=== PATIENT | male | born 1975 | race Caucasian/White ===

== ENCOUNTER 2024-07-01 11:21 | Inpatient (IN) | payer OTHER ==
--- NOTE | 2024-07-01 11:48 | ED ---
General Adult HPI - General Source: patient, RN notes reviewed, old records reviewed Mode of arrival: ambulatory Limitations: no limitations <Burton Newman - Last Filed: 07/01/24 15:08> <Marcus Centeno - Last Filed: 07/01/24 18:35> - General Chief complaint: Psychiatric Symptoms Stated complaint: Mental Health Time Seen by Provider: 07/01/24 11:25 - History of Present Illness Initial comments: This is a 49-year-old male who presents to the emergency department stating that he has been an alcoholic for the last 20 years. Patient states her last month him and his have been and this made him very depressed. Patient stated today he felt like killing himself so he called his brother and told him he was going to kill himself and potentially run out into traffic. Patient states he did drink heavy last night but he has not yet drank today. Patient denies any physical complaints today other than a bruise on his arm and hip secondary to falling but he has full range of motion of his extremities. Patient denies any recent fever chills or cough. Patient has any difficulty breathing or shortness of breath. Patient has any abdominal pain patient has nausea vomiting diarrhea (Burton Newman) - Related Data Home Medications Medication Instructions Recorded Confirmed traZODone HCL [Desyrel] 100 mg PO HS PRN 07/01/24 07/01/24 Allergies Allergy/AdvReac Type Severity Reaction Status Date / Time No Known Allergies Allergy Verified 07/01/24 12:04 Review of Systems ROS Other: All systems not noted in ROS Statement are negative. <Burton Newman - Last Filed: 07/01/24 15:08> ROS Other: All systems not noted in ROS Statement are negative. <Marcus Centeno - Last Filed: 07/01/24 18:35> ROS Statement: Those systems with pertinent positive or pertinent negative responses have been documented in the HPI. Past Medical History Past Medical History: No Reported History Past Surgical History: No Surgical Hx Reported Past Psychological History: Anxiety Smoking Status: Former smoker Past Alcohol Use History: Abuse, Daily, Heavy Past Drug Use History: None Reported <Burton Newman - Last Filed: 07/01/24 15:08> General Exam Limitations: no limitations <Burton Newman - Last Filed: 07/01/24 15:08> - General Exam Comments Initial Comments: GENERAL: Patient is well-developed and well-nourished. Patient is nontoxic and well- hydrated and is in mild distress. ENT: Neck is soft and supple. No significant lymphadenopathy is noted. Oropharynx is clear. Moist mucous membranes. Neck has full range of motion without eliciting any pain. EYES: The sclera were anicteric and conjunctiva were pink and moist. Extraocular movements were intact and pupils were equal round and reactive to light. Eyelids were unremarkable. PULMONARY: Unlabored respirations. Good breath sounds bilaterally. No audible rales rhonchi or wheezing was noted. CARDIOVASCULAR: There is a regular rate and rhythm without any murmurs gallops or rubs. ABDOMEN: Soft and nontender with normal bowel sounds. SKIN: Patient has a bruise on the upper inner aspect of his right arm and on the right hip patient has full range of motion of his right arm and right hip NEUROLOGIC: Patient is alert and oriented x3. Cranial nerves II through XII are grossly intact. Motor and sensory are also intact. Normal speech, volume and content. Symmetrical smile. MUSCULOSKELETAL: Normal extremities with adequate strength and full range of motion. No lower extremity swelling or edema. No calf tenderness. LYMPHATICS: No significant lymphadenopathy is noted PSYCHIATRIC: Patient is stating he is suicidal (Burton Newman) Course Vital Signs 07/01/24 07/01/24 11:30 16:07 Temperature 98.3 F 97.8 F Pulse Rate 108 H 79 Respiratory 18 17 Rate Blood Pressure 134/88 137/94 O2 Sat by Pulse 96 97 Oximetry Medical Decision Making - Lab Data Result diagrams: 07/01/24 12:16 07/01/24 12:16 <Burton Newman - Last Filed: 07/01/24 15:08> - Lab Data Result diagrams: 07/01/24 12:16 07/01/24 12:16 <Marcus Centeno - Last Filed: 07/01/24 18:35> - Medical Decision Making Was pt. sent in by a medical professional or institution (, PA, BOAT PILOT, urgent care, hospital, or [facility]...) When possible be specific @ -No Did you speak to anyone other than the patient for history (EMS, parent, family, police, friend...)? What history was obtained from this source @ -No Did you review nursing and triage notes (agree or disagree)? Why? @ -I reviewed and agree with nursing and triage notes Were old charts reviewed (outside hosp., previous admission, EMS record, old EKG, old radiological studies, urgent care reports/EKG's, [facility] records)? Report findings @ -No old charts were reviewed Differential Diagnosis? @ -Alcohol intoxication, alcohol withdrawal, suicidal, depression, situational depression, this is not an all-inclusive list EKG interpreted by me (3pts min.). @ -As above X-rays interpreted by me (1pt min.). @ -None done CT interpreted by me (1pt min.). @ -None done U/S interpreted by me (1pt. min.). @ -None done What testing was considered but not performed or refused? (CT, X-rays, U/S, labs)? Why? @ -None What meds were considered but not given or refused? Why? @ -None Did you discuss the management of the patient with other professionals (professionals i.e. , PA, BOAT PILOT, lab, RT, psych nurse, social work instructor, data migration lead, teacher, tactical response group officer, manager rn case)? Give summary @ -No Was smoking cessation discussed for >3mins.? @ -No Was critical care preformed (if so, how long)? @ -No Were there social determinants of health that impacted care today? How? (Homelessness, low income, unemployed, alcoholism, drug addiction, transportation, low edu. Level, literacy, decrease access to med. care, snf, rehab)? @ -No Was there de-escalation of care discussed even if they declined (Discuss DNR or withdrawal of care, Hospice)? DNR status @ -No What co-morbidities impacted this encounter? (DM, HTN, Smoking, COPD, CAD, Cancer, CVA, ARF, Chemo, Hep., AIDS, mental health diagnosis, sleep apnea, morbid obesity)? @ -None Was patient admitted / discharged? Hospital course, mention meds given and route, prescriptions, significant lab abnormalities, going to OR and other pertinent info. @ -Patient is intoxicated and will be medically clear at 430 at which point in time Dr. Centeno will take over the care of this patient and EPS will come evaluate (Burton Newman) Patient care signed out to me by previous shift physician, Dr. Newman. Briefly, patient is a 49-year-old male who presents to the emergency department with suicidal ideation. Patient pending EPS evaluation. At 6:35 PM was notified by EPS that patient will be admitted to inpatient psych. (Marcus Centeno) - Lab Data Lab Results 07/01/24 07/01/24 07/01/24 Range/Units 12:16 12:16 12:53 WBC 6.7 (3.8-10.6) k/uL RBC 4.98 (4.30-5.90) m/uL Hgb 16.1 (13.0-17.5) gm/dL Hct 49.1 (39.0-53.0) % MCV 98.4 (80.0-100.0) fL MCH 32.3 (25.0-35.0) pg MCHC 32.8 (31.0-37.0) g/dL RDW 12.6 (11.5-15.5) % Plt Count 286 (150-450) k/uL MPV 6.8 Neutrophils % 64 % Lymphocytes % 27 % Monocytes % 5 % Eosinophils % 1 % Basophils % 1 % Neutrophils # 4.3 (1.3-7.7) k/uL Lymphocytes # 1.8 (1.0-4.8) k/uL Monocytes # 0.4 (0-1.0) k/uL Eosinophils # 0.1 (0-0.7) k/uL Basophils # 0.1 (0-0.2) k/uL Sodium 140 (137-145) mmol/L Potassium 3.9 (3.5-5.1) mmol/L Chloride 109 H (98-107) mmol/L Carbon Dioxide 21 L (22-30) mmol/L Anion Gap 10 mmol/L BUN 10 (9-20) mg/dL Creatinine 0.78 (0.66-1.25) mg/dL Est GFR (CKD-EPI)AfAm >90 (>60 ml/min/1.73 sqM) Est GFR (CKD-EPI)NonAf >90 (>60 ml/min/1.73 sqM) Glucose 106 H (74-99) mg/dL Calcium 8.8 (8.4-10.2) mg/dL Magnesium 2.1 (1.6-2.3) mg/dL Total Bilirubin 0.6 (0.2-1.3) mg/dL AST 30 (17-59) U/L ALT 47 (4-49) U/L Alkaline Phosphatase 66 (38-126) U/L Total Protein 7.4 (6.3-8.2) g/dL Albumin 4.8 (3.5-5.0) g/dL Urine Opiates Screen Not Detected (NotDetected) Ur Oxycodone Screen Not Detected (NotDetected) Urine Methadone Screen Not Detected (NotDetected) Ur Barbiturates Screen Not Detected (NotDetected) U Tricyclic Antidepress Not Detected (NotDetected) Ur Phencyclidine Scrn Not Detected (NotDetected) Ur Amphetamines Screen Not Detected (NotDetected) U Methamphetamines Scrn Not Detected (NotDetected) U Benzodiazepines Scrn Not Detected (NotDetected) Urine Cocaine Screen Not Detected (NotDetected) U Marijuana (THC) Screen Not Detected (NotDetected) Disposition <Burton Nemwan - Last Filed: 07/01/24 15:08> Decision Time: 18:35 <Marcus Centeno - Last Filed: 07/01/24 18:35> Clinical Impression: Suicidal ideation Disposition: ADMITTED IP TO THIS [facility] Condition: Fair Referrals: Baljit Brown MD [Primary Care Provider] - 1-2 days
[2024-07-01] MEDS: SODIUM CHLORIDE 0.9% 1,000 ML IV ONE (12:17)
[2024-07-01] MEDS: SODIUM CHLORIDE 0.9% 500 ML 500 ML IV ONE (12:17)
[2024-07-01 12:25] LABS: Basophils # (A) 0.1 k/uL (0-0.2); Basophils % (A) 1 %; Eosinophils # (A) 0.1 k/uL (0-0.7); Eosinophils % (A) 1 %; HCT 49.1 % (39.0-53.0); HGB 16.1 gm/dL (13.0-17.5); Lymphocytes # (A) 1.8 k/uL (1.0-4.8); Lymphocytes % (A) 27 %; MCH 32.3 pg (25.0-35.0); MCHC 32.8 g/dL (31.0-37.0); MCV 98.4 fL (80.0-100.0); Mean Platelet Volume 6.8; Monocytes # (A) 0.4 k/uL (0-1.0); Monocytes % (A) 5 %; Neutrophils # (A) 4.3 k/uL (1.3-7.7); Neutrophils % (A) 64 %; Platelet Count 286 k/uL (150-450); RBC 4.98 m/uL (4.30-5.90); RDW 12.6 % (11.5-15.5); WBC 6.7 k/uL (3.8-10.6)
[2024-07-01 12:34] LABS: ALT 47 U/L (4-49); AST 30 U/L (17-59); African American GFR (CKD) >90 (>60 ml/min/1.73 sqM); Albumin 4.8 g/dL (3.5-5.0); Alkaline Phosphatase 66 U/L (38-126); Anion Gap 10 mmol/L; Blood Urea Nitrogen 10 mg/dL (9-20); Calcium 8.8 mg/dL (8.4-10.2); Carbon Dioxide 21 mmol/L (22-30); Chloride 109 mmol/L (98-107); Glucose 106 mg/dL (74-99); Magnesium 2.1 mg/dL (1.6-2.3); Non-African American GFR(CKD) >90 (>60 ml/min/1.73 sqM); Potassium 3.9 mmol/L (3.5-5.1); Sodium 140 mmol/L (137-145); Total Bilirubin 0.6 mg/dL (0.2-1.3); Total Protein 7.4 g/dL (6.3-8.2)
[2024-07-01 13:17] LABS: Amphetamine Screen,Urine Not Detected (NotDetected); Barbiturate Screen,Urine Not Detected (NotDetected); Benzodiazepines Screen,Urine Not Detected (NotDetected); Cocaine Screen,Urine Not Detected (NotDetected); Methadone Screen, Urine Not Detected (NotDetected); Opiate Screen,Urine Not Detected (NotDetected); Oxycodone Screen, Urine Not Detected (NotDetected); Phencyclidine Screen,Urine Not Detected (NotDetected); Tricyclic Antidepressant,Urine Not Detected (NotDetected); Urn Cannabinoid Scrn Not Detected (NotDetected)
[2024-07-01] MEDS: diazePAM 2 MG TAB PO STA (18:47)
[2024-07-02] MEDS ORDERED: IBUPROFEN 600 MG TAB PO PRN (01:45)
[2024-07-02] MEDS ORDERED: ACETAMINOPHEN TAB 325 MG TAB PO PRN (01:45)
[2024-07-02] MEDS ORDERED: LORazepam 1 MG TAB PO PRN ×4 (01:51)
[2024-07-02] MEDS ORDERED: HALOPERIDOL LACTATE 5 MG/ML 1 ML VIAL IM PRN (01:55)
[2024-07-02] MEDS ORDERED: haloperidoL 5 MG TAB PO PRN (01:55)
[2024-07-02] MEDS ORDERED: LORazepam 2 MG/ML INJ IM PRN (01:59)
[2024-07-02 03:23] VITALS: RESP 18
[2024-07-02] MEDS: traZODone HCL 50 MG TAB PO SCH (03:27)
[2024-07-02] MEDS: MULTIVITAMINS, THERA 1 EACH TAB PO SCH (09:28)
[2024-07-02] MEDS: FOLIC ACID 1 MG TAB PO SCH (09:28)
[2024-07-02] MEDS: SERTRALINE 50 MG TAB PO SCH (12:31)
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
[2024-07-02] MEDS: NICOTINE GUM (POLACRILEX) 2 MG GUM BUCCAL PRN (13:39)
[2024-07-02] MEDS: hydrOXYzine pamoate 25 MG CAP PO PRN (17:23)
[2024-07-02] MEDS ORDERED: traZODone HCL 50 MG TAB PO SCH (21:00)
[2024-07-02] MEDS: traZODone HCL 100 MG TAB PO SCH (22:25)
--- NOTE | 2024-07-03 06:25 | P.MDCNMH ---
History of Present Illness H&P Date: 07/02/24 This is a very pleasant 49-year-old male who has been having increased depression with suicidal ideation and thoughts of wanting to harm himself. Patient has recently with his significant other and also lost his job and had been having increased depression with feelings of hopelessness and worthless and had been recently drinking more frequently and daily and reports to at least 1/5 of vodka a day. Patient also reports history of anxiety and depression former smoker and continues to vape and denies any other illicit drug use. Patient denies chest pain or shortness of breath and vital signs were stable. Will provide Nicorette gum and other supportive care. Patient was voluntarily admitted to [facility] for depression with suicidal ideation. Patient follows with Dr. Brown as his primary care provider outpatient. REVIEW OF SYSTEMS: CONSTITUTIONAL: No fever, no malaise, no fatigue. HEENT: No recent visual problems or hearing problems. Denied any sore throat. CARDIOVASCULAR: No chest pain, orthopnea, PND, no palpitations, no syncope. PULMONARY: No shortness of breath, no cough, no hemoptysis. GASTROINTESTINAL: No diarrhea, no nausea, no vomiting, no abdominal pain. NEUROLOGICAL: No headaches, no weakness, no numbness. HEMATOLOGICAL: Denies any bleeding or petechiae. GENITOURINARY: Denies any burning micturition, frequency, or urgency. MUSCULOSKELETAL/RHEUMATOLOGICAL: Denies any joint pain, swelling, or any muscle pain. ENDOCRINE: Denies any polyuria or polydipsia. The rest of the 14-point review of systems is negative. PHYSICAL EXAMINATION: GENERAL: The patient is alert and oriented x3, not in any acute distress. Well developed, thin built HEENT: Pupils are round and equally reacting to light. EOMI. No scleral icterus. No conjunctival pallor. Normocephalic, atraumatic. No pharyngeal erythema. No thyromegaly. CARDIOVASCULAR: S1 and S2 present. No murmurs, rubs, or gallops. PULMONARY: Chest is clear to auscultation, no wheezing or crackles. ABDOMEN: Soft, nontender, nondistended, normoactive bowel sounds. No palpable organomegaly. MUSCULOSKELETAL: No joint swelling or deformity. EXTREMITIES: No cyanosis, clubbing, or pedal edema. NEUROLOGICAL: Gross neurological examination did not reveal any focal deficits. SKIN: No rashes. Assessment: Depression with suicidal ideation History of anxiety and depression Former smoker Vaping Former alcohol abuse although recently started drinking again, reports at least 1/5 of vodka daily GI prophylaxis Full code Plan: Patient was voluntarily admitted to [facility] for further psychiatric evaluation with increased depression with suicidal ideation and thoughts of wanting to harm himself Patient was instructed to work with psychiatry regarding medications. Encouraged group therapy sessions Nicorette gum as needed Thank you kindly for this consultation. Patient has been instructed to follow- up with primary care provider on discharge The impression and plan of care has been dictated by Melody Mcnair, Nurse Practitioner as directed. Dr. Sunny MD I have performed a history and examination and MDM of this patient, discussed the same with the dictator, and agree with the dictator's assessment and plan as written ,documented as a scribe. Based on total visit time, I have performed more than 50% of the visit. Past Medical History Past Medical History: No Reported History History of Any Multi-Drug Resistant Organisms: None Reported Past Surgical History: No Surgical Hx Reported Past Anesthesia/Blood Transfusion Reactions: No Reported Reaction Past Psychological History: Anxiety, Depression Smoking Status: Former smoker, Vaper Past Alcohol Use History: Abuse, Daily, Heavy Additional Past Alcohol Use History / Comment(s): Patietnt reports drinking a fifth a day. Past Drug Use History: None Reported - Past Family History Father Family Medical History: Unable to Obtain Mother Family Medical History: Unable to Obtain Medications and Allergies Home Medications Medication Instructions Recorded Confirmed Type traZODone HCL [Desyrel] 100 mg PO HS PRN 07/01/24 07/01/24 History Allergies Allergy/AdvReac Type Severity Reaction Status Date / Time No Known Allergies Allergy Verified 07/01/24 12:04 Physical Exam Vitals: Vital Signs Temp Pulse Pulse Resp BP BP Pulse Ox 07/02/24 03:17 98.4 F 72 18 157/98 99 07/01/24 16:07 97.8 F 79 17 137/94 97 07/01/24 11:30 98.3 F 108 H 18 134/88 96 Intake and Output 07/01/24 07/02/24 07/02/24 22:59 06:59 14:59 Other: Weight 90.01 kg Cranial Nerve Examination - Cranial Nerves Cranial Nerve I- Olfactory: Intact Cranial Nerve II- Optic: Intact Cranial Nerve III- Oculomotor: Intact Cranial Nerve IV- Trochlear: Intact Cranial Nerve V- Trigeminal: Intact Cranial Nerve - Abducens: Intact Cranial Nerve VII- Facial: Intact Cranial Nerve VIII- Auditory: Intact Cranial Nerve IX- Glossopharyngeal: Intact Cranial Nerve X- Vagus: Intact Cranial Nerve XI- Accessory: Intact Cranial Nerve XII- Hypoglossal: Intact Results CBC & Chem 7: 07/01/24 12:16 07/01/24 12:16 Labs: Abnormal Lab Results - Last 24 Hours (Table) 07/01/24 Range/Units 12:16 Chloride 109 H (98-107) mmol/L Carbon Dioxide 21 L (22-30) mmol/L Glucose 106 H (74-99) mg/dL
[2024-07-03] MEDS: NALTREXONE HCL 50 MG TAB PO SCH (10:22)
--- NOTE | 2024-07-03 11:33 | P.PN ---
Progress Note - Text Progress Note Date: 07/03/24 Interval History: patient was seen today for psychiatric follow up. he claims that he feels a bit calmer today and is stating that his mood and anxiety are mildly improving today. He claims that the medications have been helping him, denying any side effects at this time. He states that once he is discharged he does not want to go to rehab and wants to go to his brother's house as he feels that he could remain sober there. Claims that he had a difficult time sleeping last night. States that his appetite is fair has been trying to go to some groups. We spoke again about decreasing the Librium which she is okay with. At this time he is denying any suicidal homicidal ideations intent or plan, denying any auditory or visual hallucinations. MENTAL STATUS EXAM: General Appearance: Patient appears to be thin, longer hair, stated age is alert, improving eye contact, attempts to cooperate, Patient appears to have improving hygiene and grooming. Behavior: Patient is seated without any agitated behavior. More cooperative today Speech: Patient's speech is fluent and nonpressured. [place], improving Mood/Affect: Patient reports their mood is improving mildly, affect is congruent and constricted. Suicidality/Homicidality: Patient denies having any homicidal ideation intent or plan. Denies any suicidal ideations intent or plan Perceptions: Patient denies any visual hallucinations and denies any auditory hallucinations Though content/process: There is no evidence of any delusional thought content and thought process is linear and goal-directed. Poverty of content Memory and concentration: AOX3, grossly intact for the purposes of this session Judgment and insight: Poor improving mildly IMPRESSIONS: Major depressive disorder, without psychotic features Anxiety disorder unspecified Alcohol use disorder Nicotine dependence PLAN: -Patient is admitted under voluntary status to [facility] for stabilization of psychiatric symptoms and safety. Patient has signed adult voluntary form and medication consent and is placed in patient's chart. -Medications : Zoloft 50 mg daily for mood/anxiety, trazodone 100 mg nightly for insomnia/mood, decrease Librium 10 mg 3 times daily with plan to taper down for alcohol withdrawal. Naltrexone 50 mg p.o. daily for alcohol cravings. Vistaril as needed for anxiety. -Ativan and Haldol PRN for agitation/aggression -thiamine, MVM for etoh use -CIWA protocol with Ativan PRN for ETOH withdrawal. -NRT -nicotine patch -SW on board for discharge planning. Encourage patient to participate in groups to work on coping skills.
--- NOTE | 2024-07-04 11:22 | P.PN ---
Progress Note - Text Progress Note Date: 07/04/24 Interval History: patient was seen today for psychiatric follow up. he claims that he feels a bit calmer today, is reporting a improvement in his mood today. He states that he would like to continue on the same dose of Zoloft at this time. Did state that he had a difficult time sleeping last night. We spoke about increasing the trazodone which she is okay with. Not reporting any other side effects. Claims that the alcohol withdrawal has been improving not reporting any symptoms or shaking at this time. States that his appetite is improving. He appears to be a bit more future oriented today, asking about potential discharge tomorrow. Has been going to some groups. We spoke again about decreasing the Librium which she is okay with. At this time he is denying any suicidal homicidal ideations intent or plan, denying any auditory or visual hallucinations. MENTAL STATUS EXAM: General Appearance: Patient appears to be thin, longer hair, stated age is alert, improving eye contact, attempts to cooperate, Patient appears to have improving hygiene and grooming. Behavior: Patient is seated without any agitated behavior. More cooperative today Speech: Patient's speech is fluent and nonpressured, improving Mood/Affect: Patient reports their mood is improving mildly, affect is congruent and improving Suicidality/Homicidality: Patient denies having any homicidal ideation intent or plan. Denies any suicidal ideations intent or plan Perceptions: Patient denies any visual hallucinations and denies any auditory hallucinations Though content/process: There is no evidence of any delusional thought content and thought process is linear and goal-directed, more future oriented today Memory and concentration: AOX3, grossly intact for the purposes of this session Judgment and insight: Improving mildly IMPRESSIONS: Major depressive disorder, without psychotic features Anxiety disorder unspecified Alcohol use disorder Nicotine dependence PLAN: -Patient is admitted under voluntary status to [facility]HU for stabilization of psychiatric symptoms and safety. Patient has signed adult voluntary form and medication consent and is placed in patient's chart. -Medications : Zoloft 50 mg daily for mood/anxiety, increase trazodone 150 mg nightly for insomnia/mood, decrease Librium 10 mg 2 times daily with plan to taper down for alcohol withdrawal, last dose tomorrow am. Naltrexone 50 mg p.o. daily for alcohol cravings. Vistaril as needed for anxiety. -Ativan and Haldol PRN for agitation/aggression -thiamine, MVM for etoh use -CIWA protocol with Ativan PRN for ETOH withdrawal. -NRT -nicotine patch -SW on board for discharge planning. Encourage patient to participate in groups to work on coping skills. likely discharge tomorrow if patient is doing well. he is refusing rehab at this time.
[2024-07-04] MEDS: traZODone HCL 50 MG TAB PO SCH (22:51)
[2024-07-05 06:59] VITALS: BP 106/70; PULSE 99; TEMP 97.9
--- NOTE | 2024-07-05 14:30 | P.DS ---
Providers Date of admission: 07/02/24 00:51 Expected date of discharge: 07/05/24 Attending physician: Fahad Torres MD Consults: 07/02/24 07:28 Consult Physician Routine Consulting Provider: Fady Dos Santos Consult Reason/Comments: Medical managment Do you want consulting provider notified?: Yes Primary care physician: Baljit Brown - Discharge Diagnosis(es) (1) Alcohol use disorder, severe, dependence Current Visit: Yes Status: Chronic (2) Anxiety disorder, unspecified Current Visit: Yes Status: Chronic (3) Major depressive disorder without psychotic features Current Visit: Yes Status: Chronic (4) Nicotine dependence Current Visit: Yes Status: Chronic Hospital Course: Admission HPI: Admission note was completed by "Dr. Torres" "Patient presented to the hospital yesterday complaining of depression, states that recently from his was having suicidal ideations plan to run into traffic. Patient also was treated for alcohol abuse for the past 20 or so years, last drink was before coming into the hospital. Patient's urine drug screen was negative for any substances. Patient was able to speak to parts data writer today. He claims that he has been having more arguments with his girlfriend lately, claims that "she told me she does not love me anymore". She is apparently has ended the relationship of 15 years. States that he has been drinking more heavily recently about 1/5 of vodka a day. 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 Claims that he had a problem with lateness and also "could not keep up". Claims that he has been feeling more depressed feeling hopeless and worthless. Also endorsing anhedonia. He had poor eye contact, was also endorsing anxiety at this time. States that he is also having financial issues due to losing his job. When asked about withdrawal symptoms he states that he is not having any any tremors or shakes at this time no other withdrawals, no history of seizures or delirium tremens. Claims that his sleep and appetite are poor. Patient denies any current suicidal or homicidal ideations intent or plan. At this time patient denies any auditory or visual hallucinations. Patient denies any flight of ideas racing thoughts and increased in goal directed behavior. Patient admits to using alcohol as noted above. Also claims that he vapes nicotine products. Denies any other recreational drug use." Hospital course: Upon admission to the unit patient was directable and agreeable to commence treatment and signed adult voluntary form. Patient got along well with other patients on the unit and followed unit protocol. Patient was compliant with the medications and denied any side effects throughout hospital course. Patient was started on sertraline 50 mg daily for mood and anxiety, Librium for alcohol withdrawal with a plan to taper off prior to discharge, Vistaril as needed for anxiety, and Naltrexone 50 mg daily for alcohol craving. Additionally, trazodone was increased to 150 mg at bedtime for insomnia and mood. Patient spoke of his stressors and engaged in therapy both group and individual. He reflected on the challenges alcohol misuse caused, particularly as it relates to strain on his marriage. Patient was also seen by medical team for history and physical exam. Throughout the course of the hospitalization patient gradually improved with regards to mood, anxiety, sleep and became more future oriented with improved insight and judgment. On the day of discharge, and consistently for several days prior, patient denied any suicidal or homicidal ideations intent or plan denied any auditory or visual hallucinations. Patient endorsed wanting to live for their health and family with the hope of reconciling their marriage. The patient denied any access to guns or weapons. He will discharge to his brother's home; his brother keeps all firearms locked up and patient cannot access them. Patient denied any paranoia and did not endorse any delusions. Patient does have a significant history of substance abuse and was counseled on abstaining from all substances including alcohol and marijuana. Patient was offered however declined inpatient substance-abuse rehab. Patient elected to do outpatient substance use treatment program and establish care with an outpatient provider. Patient was also counseled on the medications and need for regular compliance and was encouraged to follow-up with their outpatient appointment for mental health and also for primary care. Mental status exam: General Appearance: Patient appears to be stated age is alert, pleasant, and cooperative. Patient is in no acute distress and has improved hygiene and grooming Behavior: Patient is calmly seated without any agitated behavior. Speech: Patient's speech is fluent and nonpressured. Mood/Affect: Patient reports their mood is "improved", affect is congruent and euthymic. Suicidality/Homicidality: Patient denies having any suicidal or homicidal ideation intent or plan. Perceptions: Patient denies any auditory or visual hallucinations. Though content/process: There is no evidence of any delusional thought content and thought process is linear and goal-directed. More future oriented Memory and concentration: AOX3, grossly intact for the purposes of this session. Can spell "WORLD" backwards correctly. Judgment and insight: Fair, however has improved with guarded prognosis Impression: Major depressive disorder, without psychotic features Alcohol use disorder, severe Unspecified anxiety disorder Nicotine dependence Plan: -Continue with discharge today as patient has improved and stabilized psychiatrically and is not currently an imminent threat to himself and/or others. Patient will remain at chronically elevated risk for harm to self and/or others due to their impulsivity and substance abuse. -Continue medications: Sertraline 50 mg daily, Naltrexone 50 mg daily, Trazodone 150 mg at bedtime, and Vistaril 25 mg TID as needed for anxiety -Patient was counseled on the need for medication compliance and appropriate follow-up at mental health and also primary care for medical issues. Patient verbalized understanding and agreed. -Team members to help coordinate patients discharge today and arrange for patients follow up appointments with [facility] for psychiatric care along with follow up with primary care provider. -Patient counseled on abstaining from recreational drugs and marijuana and alcohol. Was informed/educated on the adverse effects on their physical and mental health. Patient verbally agreed and understood. Patient was offered substance abuse treatment however declined at this time. -Patient was instructed to return to the hospital or seek immediate medical care if their psychiatric or medical symptoms do worsen or reoccur. Patient Condition at Discharge: Fair Plan - Discharge Summary Discharge Rx Participant: Yes New Discharge Prescriptions: New traZODone HCL [Desyrel] 150 mg PO HS #90 tab Naltrexone HCl [Revia] 50 mg PO DAILY #30 tab Sertraline [Zoloft] 50 mg PO DAILY #30 tab hydrOXYzine pamoate [Vistaril] 25 mg PO TID PRN #90 cap PRN Reason: Anxiety Discontinued traZODone HCL [Desyrel] 100 mg PO HS PRN PRN Reason: Insomnia Discharge Medication List Naltrexone HCl [Revia] 50 mg PO DAILY #30 tab 07/05/24 [Rx] Sertraline [Zoloft] 50 mg PO DAILY #30 tab 07/05/24 [Rx] hydrOXYzine pamoate [Vistaril] 25 mg PO TID PRN #90 cap 07/05/24 [Rx] traZODone HCL [Desyrel] 150 mg PO HS #90 tab 07/05/24 [Rx] Follow up Appointment(s)/Referral(s): [facility] [Outside] - 07/09/24 9:00 am (First appointment will be at the following address on 07/09 at 9am with Haily [address] [place] [address] ) Baljit Brown MD [Primary Care Provider] - 1-2 days Patient Instructions/Handouts: How to Stop Smoking (DC), Depression (DC), Abuse of Alcohol (DC), Anxiety (GEN) Activity/Diet/Wound Care/Special Instructions: Avoid the use of street drugs and alcohol. Take all medications as prescribed. When you are in need of refills on your medications, please contact your medical provider and/or outpatient psychiatrist/provider to have this done. Please go to your scheduled outpatient appointment for aftercare treatment. If symptoms return or become worse, call the crisis line at and/or go to the nearest emergency room for evaluation. National Suicide Hotline 988 Discharge/Stand Alone Forms: AA Meetings Dist 22 & 24 - [facility]
== END 2024-07-05 16:39 | disposition home or self-care (01) | DRG 881 ==
LOC: EC 11:21 → 3MHU 07-02 00:51
PROVIDERS: ADMIT Psychiatry & Neurology Psychiatry; ATTEND Psychiatry & Neurology Psychiatry
DX: F32.9 Major depressive disorder, single episode, unspecified (principal); F10.239 Alcohol dependence with withdrawal, unspecified; R45.851 Suicidal ideations; G47.00 Insomnia, unspecified; Z87.891 Personal history of nicotine dependence; F41.9 Anxiety disorder, unspecified; Z71.41 Alcohol abuse counseling and surveillance of alcoholic; Z71.89 Other specified counseling; Z56.0 Unemployment, unspecified; Z59.86 Financial insecurity; Z63.5 Disruption of family by separation and divorce; Z79.899 Other long term (current) drug therapy
CPT/HCPCS: 36415; 80053; 80306; 82075; 83735; 85025; 87636; 96360; 96361; 99285